=== PATIENT | male | born 1965 | race Caucasian/White ===

== ENCOUNTER 2024-10-26 15:37 | Outpatient (RCR) | payer OTHER, SELFPAY ==
--- NOTE | 2024-10-26 16:30 | OPREHPOC ---
Outpatient Therapy Plan of Care This is a Multidisciplinary Plan of Care that may contain components documented by all disciplines (PT, OT, and ST.) PT Problem 1 PT Problem #1 Knowledge Deficit PT Goal 1 Goal / Goal Update independent and compliant with HEP Target Visit 6 PT Problem 2 PT Problem #2 Pain PT Goal 1 Goal / Goal Update no more than 2/10 pain at worst in the L knee. Target Visit 15 PT Problem 3 PT Problem #3 Impaired Range of Motion PT Goal 1 Goal / Goal Update 0-120 degrees or better active L knee rom Target Visit 15 PT Problem 4 PT Problem #4 Impaired Strength PT Goal 1 Goal / Goal Update 5/5 L hip flex 5/5 L knee strength 5/5 L ankle DF Target Visit 15 PT Problem 5 PT Problem #5 Impaired Functional Mobility PT Goal 1 Goal / Goal Update LEFS to display 20% or less functional deficits patient to ambulate with normal gait mechanics on level surfaces patient to ambulate up and down steps with reciprocal mechanics with 1 hand rail or less Target Visit 15
--- NOTE | 2024-10-26 16:30 | PTOPEVAL1 ---
Assessment and note entered by JT File, PT Evaluation Information Assessment Status Evaluation ICD-10 Condition Codes (PT) Pain in left knee M25.562,Encounter for other orthopedic aftercare Z47.89,Aftercare following joint replacement surgery Z47.1 Onset 10/08/24 Subjective Information patient reports he had his L knee replaced on 05/24. he reports since surgery, he does have some pain. he reports the pain feels like a bone pain. he reports he had the R knee replaced in march of last year. he reports prior to this L knee replacement he just had, he was really struggling to even put any weight on it to walk. he was not using any AD, but limping quite a bit. he has DC'd use of a cane/walker since surgery. he has a post op follow up on 11/03/24. Reported Pain Level Pain Score 8: Self Report Assessment PT Clinical Summary mr. roman is a pleasant 58 yo man who presents to skilled PT services for evaluation and rehab following L TKA. he presents today with deficits in L knee rom, L LE strength, ambulation mechanics , and functional activity performance. he also reports moderate to high pain in the L knee. continued skilled PT is indicated to improve his objective/functional deficits and progress towards a return to his prior level functional activity performance/quality of life. Plan of Care Interventions Gait Training,Hot Pack/Cold Pack,Intermittent Compression Pump,Manual Therapy,Neuro Re-education ,Patient/Caregiver Education,Therapeutic Activities,Therapeutic Exercise PT Services Indicated Yes Treatment Frequency and 3x weekly for 15 visits Duration These treatments will address the objective and functional deficits as defined above. The patient will be advanced safely and appropriately in order for the patient to progress towards his/her prior level of function. Additional exercises will be introduced and as well as a comprehensive home exercise program upon discharge, if needed, ?to ensure carryover of functional gains achieved in the clinic. This treatment plan has been reviewed and agreement upon by the patient.
--- NOTE | 2024-11-16 13:02 | PTOPPROGNS ---
Assessment and note entered by Kindra Mcmillan DPT Evaluation Information Assessment Status Progress - Pt Not Present ICD-10 Condition Codes (PT) Pain in left knee M25.562,Encounter for other orthopedic aftercare Z47.89,Aftercare following joint replacement surgery Z47.1 Onset 10/08/24 Subjective Information patient reports that knee is stiff but he is improving. he reports he is compliant with HEP. Assessment PT Clinical Summary Mr. Her has been seen for 10 visits of skilled PT with good progress towards goal. He has been able to achieve 0-130 deg of active L knee ROM. He also demonstrates improved B LE strength with decreased pain. He reports independence with HEP and will benefit from continued skilled PT to address remaining impairments and return to PLOF. Plan of Care Interventions Gait Training,Hot Pack/Cold Pack,Intermittent Compression Pump,Manual Therapy,Neuro Re-education ,Patient/Caregiver Education,Therapeutic Activities,Therapeutic Exercise PT Services Indicated Yes Treatment Frequency and continue with current POC Duration These treatments will address the objective and functional deficits as defined above. The patient will be advanced safely and appropriately in order for the patient to progress towards his/her prior level of function. Additional exercises will be introduced and as well as a comprehensive home exercise program upon discharge, if needed, ?to ensure carryover of functional gains achieved in the clinic. This treatment plan has been reviewed and agreement upon by the patient.
--- NOTE | 2024-11-29 07:57 | OPREHPOC ---
Outpatient Therapy Plan of Care This is a Multidisciplinary Plan of Care that may contain components documented by all disciplines (PT, OT, and ST.) PT Problem 1 PT Problem #1 Knowledge Deficit PT Goal 1 Goal / Goal Update independent and compliant with HEP Target Visit 6 Progress Met PT Problem 2 PT Problem #2 Pain PT Goal 1 Goal / Goal Update no more than 2/10 pain at worst in the L knee. Target Visit 15 Progress Met PT Problem 3 PT Problem #3 Impaired Range of Motion PT Goal 1 Goal / Goal Update 0-120 degrees or better active L knee rom- met Target Visit 15 Progress Met PT Problem 4 PT Problem #4 Impaired Strength PT Goal 1 Goal / Goal Update 5/5 L hip flex- met 5/5 L knee strength- met 5/5 L ankle DF- met Target Visit 15 Progress Met PT Problem 5 PT Problem #5 Impaired Functional Mobility PT Goal 1 Goal / Goal Update LEFS to display 20% or less functional deficits - not met patient to ambulate with normal gait mechanics on level surfaces -met patient to ambulate up and down steps with reciprocal mechanics with 1 hand rail or less -met Target Visit 15 Progress Partially Met
--- NOTE | 2024-11-29 07:57 | PTOPDC ---
Assessment and note entered by Jane Jaeger, PT Evaluation Information Assessment Status Discharge ICD-10 Condition Codes (PT) Pain in left knee M25.562,Encounter for other orthopedic aftercare Z47.89,Aftercare following joint replacement surgery Z47.1 Onset 10/08/24 Subjective Information Pt reports feeling improved after L TKA on 10/08/24 . He feels like his strength have improved and he' s able to perform all daily functional tasks without difficulty. he's able to ascend/descend steps reciprocally with one handrail however during instances where there's no handrail, he navigates steps using a step over step pattern. Reported Pain Level Pain Score 0: Self Report Assessment PT Clinical Summary Mr. Her has attended 15 total skilled PT visits following L TKA on 10/08/24. Since beginning PT he has made excellent improvements in his knee ROM and strength. He's able to navigate stairs reciprocally using a handrail and is able to perform all other daily functional activities without difficulty. He has been independent with his HEP and has met or partially met all therapeutic goals, and therefore is appropriate for discharge from skilled PT services this date. Plan of Care PT Services Indicated No
== END 2024-11-29 20:00 | disposition home or self-care (01) ==
LOC: CHSPT 15:37
DX: Z47.1 Aftercare following joint replacement surgery (principal); Z96.652 Presence of left artificial knee joint
CPT/HCPCS: 97014; 97016; 97110; 97112; 97150; 97161; 97530; G0283

== ENCOUNTER 2024-12-02 08:55 | Outpatient (RCR) | payer OTHER, SELFPAY ==
--- NOTE | 2024-12-02 08:05 | OPREHPOC ---
Outpatient Therapy Plan of Care This is a Multidisciplinary Plan of Care that may contain components documented by all disciplines (PT, OT, and ST.) PT Problem 1 PT Problem #1 Knowledge Deficit PT Goal 1 Goal / Goal Update Independent and compliant with HEP. Target Visit 4 PT Problem 2 PT Problem #2 Pain PT Goal 1 Goal / Goal Update Pt to report no more than 3/10 low back pain with activity. Target Visit 15 PT Problem 3 PT Problem #3 Impaired Strength PT Goal 1 Goal / Goal Update Pt to improve gross LE strength to 5/5. Pt to improve lower abdominal strength to 4/5. Target Visit 15 PT Problem 4 PT Problem #4 Impaired Functional Mobility PT Goal 1 Goal / Goal Update Pt to report 20% improvement in Oswestry score. Pt to be able to sit/stand/walk for more than 15 minutes before needing a seated rest break due to pain. Pt to improve 6MWT distance to 900ft without rest. Target Visit 15
--- NOTE | 2024-12-02 08:05 | PTOPEVAL1 ---
Assessment and note entered by Jane Jaeger, PT Evaluation Information Assessment Status Evaluation ICD-10 Condition Codes (PT) Pain in low back M54.50,Radiculopathy, lumbar region M54.16 Onset 12/02/21 Subjective Information Pt notes low back pain with numbness, tingling, and burning that radiates down the sides of his thighs and down his inner thighs. He states this has been happening for around 3 years. He notes aggravation of symptoms and a feeling of pressure in his low back when he's sitting/standing for a long time and lifting, and he is occasionally woken up at night due to back pain. However he also notes some activities such as picking up tree limbs do not bother his back. He states he does have a history of neuropathy and fusion of L4-5 in 2000 as well as two other fusions in 2002 from loose/broken components. He does note some trouble going to the bathroom but is unsure if it's influenced by his low back. Reported Pain Level Pain Score 6: Self Report Assessment PT Clinical Summary Mr. Her is a 59 yo male who enters the clinic with complaints of chronic back pain and radicular symptoms radiating down both legs along the medial and lateral thighs. His symptoms are worsened by prolonged sitting/standing/walking and by bending forward to lift objects. He demonstrates impairments in lumbar ROM as well as in proximal hip and abdominal muscle strength. Symptoms were also produced in slump test on R, indicating possible lumbar radiculopathy. He will benefit from skilled PT intervention to improve strength and lumbar mobility to be able to perform daily tasks with less pain. Plan of Care Interventions Electrical Stimulation,Gait Training,Hot Pack/Cold Pack,Manual Therapy,Neuro Re-education,Patient/ Caregiver Education,Therapeutic Activities, Therapeutic Exercise,Self-Care/Home Management PT Services Indicated Yes Treatment Frequency and 2x/week for 15 visits Duration These treatments will address the objective and functional deficits as defined above. The patient will be advanced safely and appropriately in order for the patient to progress towards his/her prior level of function. Additional exercises will be introduced and as well as a comprehensive home exercise program upon discharge, if needed, ?to ensure carryover of functional gains achieved in the clinic. This treatment plan has been reviewed and agreement upon by the patient.
--- NOTE | 2025-01-04 08:01 | OPREHPOC ---
Outpatient Therapy Plan of Care This is a Multidisciplinary Plan of Care that may contain components documented by all disciplines (PT, OT, and ST.) PT Problem 1 PT Problem #1 Knowledge Deficit PT Goal 1 Goal / Goal Update Independent and compliant with HEP. Target Visit 4 Progress Met PT Problem 2 PT Problem #2 Pain PT Goal 1 Goal / Goal Update Pt to report no more than 3/10 low back pain with activity. Target Visit 15 Progress Not Met PT Problem 3 PT Problem #3 Impaired Strength PT Goal 1 Goal / Goal Update Pt to improve gross LE strength to 5/5. met Pt to improve lower abdominal strength to 4/5. Target Visit 15 Progress Partially Met PT Problem 4 PT Problem #4 Impaired Functional Mobility PT Goal 1 Goal / Goal Update Pt to report 20% improvement in Oswestry score. not met Pt to be able to sit/stand/walk for more than 15 minutes before needing a seated rest break due to pain. not met Pt to improve 6MWT distance to 900ft without rest. not met Target Visit 15 Progress Not Met
--- NOTE | 2025-01-04 08:01 | PTOPPROGNS ---
Assessment and note entered by JT File, PT Evaluation Information Assessment Status Progress ICD-10 Condition Codes (PT) Pain in low back M54.50,Radiculopathy, lumbar region M54.16 Onset 12/02/21 Subjective Information mr. roman presents to skilled PT today reporting feeling Sore today. he reports he has been more sore recently due to increased standing and walking. he reports he continues to feel his legs get heavier and heavier with increased walking and standing. Assessment PT Clinical Summary mr. roman presents to skilled PT services for his 10th skilled therapy visit for his lower back. he presents today with increased soreness from increased standing and walking over the weekend. he displays improved LE strength, but continued pain and functional deficits. continued skilled PT is indicated to improve his remaining objective/ functional deficits and return to his prior level functional activity performance/quality of life. Plan of Care Interventions Electrical Stimulation,Gait Training,Hot Pack/Cold Pack,Manual Therapy,Neuro Re-education,Patient/ Caregiver Education,Therapeutic Activities, Therapeutic Exercise,Self-Care/Home Management PT Services Indicated Yes Treatment Frequency and continue skilled PT per initial POC Duration These treatments will address the objective and functional deficits as defined above. The patient will be advanced safely and appropriately in order for the patient to progress towards his/her prior level of function. Additional exercises will be introduced and as well as a comprehensive home exercise program upon discharge, if needed, ?to ensure carryover of functional gains achieved in the clinic. This treatment plan has been reviewed and agreement upon by the patient.
--- NOTE | 2025-01-25 13:08 | OPREHPOC ---
Outpatient Therapy Plan of Care This is a Multidisciplinary Plan of Care that may contain components documented by all disciplines (PT, OT, and ST.) PT Problem 1 PT Problem #1 Knowledge Deficit PT Goal 1 Goal / Goal Update Independent and compliant with HEP. Target Visit 4 Progress Met PT Problem 2 PT Problem #2 Pain PT Goal 1 Goal / Goal Update Pt to report no more than 3/10 low back pain with activity. Target Visit 15 Progress Not Met PT Problem 3 PT Problem #3 Impaired Strength PT Goal 1 Goal / Goal Update Pt to improve gross LE strength to 5/5. met Pt to improve lower abdominal strength to 4/5. Target Visit 23 Progress Partially Met PT Problem 4 PT Problem #4 Impaired Functional Mobility PT Goal 1 Goal / Goal Update Pt to report 20% improvement in Oswestry score. not met Pt to be able to sit/stand/walk for more than 15 minutes before needing a seated rest break due to pain. met Pt to improve 6MWT distance to 900ft without rest. not met Target Visit 23 Progress Partially Met
--- NOTE | 2025-01-25 13:08 | PTOPREEVAL ---
Assessment and note entered by JT File, PT Evaluation Information Assessment Status Re-evaluation ICD-10 Condition Codes (PT) Pain in low back M54.50,Radiculopathy, lumbar region M54.16 Onset 12/02/21 Subjective Information patient reports he is improving but it is slow. he reports he still gets pain with activities up to a 7-8/10. he reports he is able to now stand and walk for 15 minutes without rest. he reports he would like to continue skilled PT to continue to work on reducing his lower back pain with activities, and increasing his time he can stand and walk prior to needing to sit. Assessment PT Clinical Summary mr. roman presents to skilled PT services for his 15th visit for lumbar pain and lumbar radiculopathy. he presents with improved tolerance for standing and walking with less fatigue and less pain. he still displays decreased abdominal strength and decreased gait efficiency. continued skilled PT is advised to progress functional performance and achieve all goals for improved quality of life. Plan of Care Interventions Electrical Stimulation,Gait Training,Hot Pack/Cold Pack,Manual Therapy,Neuro Re-education,Patient/ Caregiver Education,Therapeutic Activities, Therapeutic Exercise,Self-Care/Home Management PT Services Indicated Yes Treatment Frequency and continue skilled PT 2x weekly for 8 more visits Duration These treatments will address the objective and functional deficits as defined above. The patient will be advanced safely and appropriately in order for the patient to progress towards his/her prior level of function. Additional exercises will be introduced and as well as a comprehensive home exercise program upon discharge, if needed, ?to ensure carryover of functional gains achieved in the clinic. This treatment plan has been reviewed and agreement upon by the patient.
== END 2025-03-02 23:59 | disposition home or self-care (01) ==
LOC: CHSPT 08:55
DX: M54.50 Low back pain, unspecified (principal)
CPT/HCPCS: 97014; 97110; 97112; 97161; 97530; G0283